=== PATIENT | male | born 2000 | race Caucasian/White ===

== ENCOUNTER 2022-02-20 06:42 | Emergency (ER) | payer BC, MEDICAID ==
[~2022-02-20] VITALS: Ht 188 cm; Wt 79.5 kg
[2022-02-20 07:03] VITALS: BP 131/86
== END 2022-02-20 08:11 | disposition home or self-care (01) ==
LOC: ER 06:43
DX: S93.401A Sprain of unspecified ligament of right ankle, initial encounter (principal); S80.211A Abrasion, right knee, initial encounter; V87.8XXA Person injured in other specified noncollision transport accidents involving motor vehicle (traffic), initial encounter; Y93.89 Activity, other specified; Y92.89 Other specified places as the place of occurrence of the external cause; Y99.8 Other external cause status
CPT/HCPCS: 73610; 73630; 99284

== ENCOUNTER 2025-08-26 23:25 | Emergency (ER) | payer BC, MEDICAID ==
[~2025-08-26] VITALS: Ht 188 cm; Wt 102.1 kg
[2025-08-26 23:25] VITALS: BP 156/98; PULSE 90; RESP 18; O2SAT 99
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
[2025-08-27] MEDS: ciprofloxacin 0.3% 2.5ml ophthalmic solution LEFTEYE ONE (03:36)
[2025-08-27 04:00] VITALS: TEMP 97.8
== END 2025-08-27 04:05 | disposition home or self-care (01) ==
LOC: ER 23:25
DX: S05.32XA Ocular laceration without prolapse or loss of intraocular tissue, left eye, initial encounter (principal); W50.0XXA Accidental hit or strike by another person, initial encounter; Y93.89 Activity, other specified; Y92.89 Other specified places as the place of occurrence of the external cause; Y99.8 Other external cause status
CPT/HCPCS: 99282; 99283